=== PATIENT | female | born 1990 | race Caucasian/White ===

== ENCOUNTER → 2016-12-11 | Outpatient (CLI) | payer BC, OTHER ==
[2016-12-11 09:38] LABS: HEMOGLOBIN 13.8 gm/dl (12.3-15.3); RED BLOOD COUNT 4.5 M/UL (4.00-5.10); WHITE BLOOD COUNT 7.1 K/UL (4.5-11.0)
== END ==
LOC: LAB 08:24
PROVIDERS: Physician Assistant
DX: D72.829 Elevated white blood cell count, unspecified (principal)
CPT/HCPCS: 36415; 85025

== ENCOUNTER 2021-08-04 08:23 | Emergency (ER) | payer OTHER ==
[~2021-08-04 08:23] MED LIST: COLACE 100MG C100 MG PO; FLOMAX0.4 MG PO; NORCO 5-325 TA1 EACH PO; PRENATAL 19 TA1 EAC1 PO; VENTOLIN HFA 66.7 GM INH; ZOFRAN ODT4 MG PO
[2021-08-04 11:01] LABS: HEMOGLOBIN 13.8 gm/dl (12.3-15.3); RED BLOOD COUNT 4.59 M/UL (4.00-5.10); WHITE BLOOD COUNT 6.7 K/UL (4.5-11.0)
[2021-08-04 11:19] LABS: BUN/CREATININE RATIO 19 (0-10)
[2021-08-04] MEDS ORDERED: CARAFATE1 GM PO (12:13)
[2021-08-04] MEDS ORDERED: PHENERGAN 25 MG25 M1 PO (12:13)
[2021-08-04] MEDS ORDERED: DOXYLAMINE-PYR1 EACH PO (12:13)
== END 2021-08-04 13:03 | disposition home or self-care (01) ==
LOC: ER1 08:23
PROVIDERS: Physician Assistant
DX: O99.611 Diseases of the digestive system complicating pregnancy, first trimester (principal); K21.9 Gastro-esophageal reflux disease without esophagitis; O99.511 Diseases of the respiratory system complicating pregnancy, first trimester; J45.909 Unspecified asthma, uncomplicated; O21.9 Vomiting of pregnancy, unspecified; Z88.0 Allergy status to penicillin; Z88.2 Allergy status to sulfonamides
CPT/HCPCS: 80053; 81001; 83690; 84702; 85025; 96374; 99284; J2550

== ENCOUNTER 2021-09-09 21:07 | Emergency (ER) | payer OTHER ==
[~2021-09-09 21:07] MED LIST changes: +CARAFATE1 GM PO; +DOXYLAMINE-PYR1 EACH PO; +PHENERGAN 25 MG25 M1 PO
[2021-09-09 22:49] LABS: HEMOGLOBIN 12.7 gm/dl (12.3-15.3); RED BLOOD COUNT 4.16 M/UL (4.00-5.10); WHITE BLOOD COUNT 4.4 K/UL (4.5-11.0)
[2021-09-09 23:24] LABS: BUN/CREATININE RATIO 20 (0-10)
== END 2021-09-10 00:17 | disposition home or self-care (01) ==
LOC: ER1 21:07
PROVIDERS: Nurse Practitioner
DX: O98.511 Other viral diseases complicating pregnancy, first trimester (principal); U07.1 COVID-19; Z88.0 Allergy status to penicillin; Z88.2 Allergy status to sulfonamides; Z3A.12 12 weeks gestation of pregnancy
CPT/HCPCS: 80048; 81001; 82550; 82553; 83874; 84484; 85025; 99284

== ENCOUNTER 2021-12-26 20:57 | Outpatient (CLI) | payer OTHER | END 2021-12-27 00:04 | disposition home or self-care (01) | LOC: GENOP 20:57 | DX: O99.891 Other specified diseases and conditions complicating pregnancy (principal); N89.8 Other specified noninflammatory disorders of vagina; Z3A.27 27 weeks gestation of pregnancy | CPT/HCPCS: 81001; 83518; 87210; G0463 ==

== ENCOUNTER 2022-02-18 21:10 | Outpatient (CLI) | payer OTHER | END 2022-02-18 23:09 | disposition home or self-care (01) | LOC: GENOP 21:10 | DX: O62.9 Abnormality of forces of labor, unspecified (principal); Z3A.34 34 weeks gestation of pregnancy | CPT/HCPCS: 81001; 82731; G0463; J0702 ==

== ENCOUNTER 2022-02-19 20:04 | Outpatient (CLI) | payer OTHER | END 2022-02-19 21:29 | disposition home or self-care (01) | LOC: GENOP 20:04 | DX: Z29.8 Encounter for other specified prophylactic measures (principal) | CPT/HCPCS: 96372; J0702 ==

== ENCOUNTER → 2022-03-19 | Outpatient (CLI) | payer OTHER ==
[~2022-03-19] MED LIST changes: +BUTALB-ACETAMI1 EAC1 PO; +HYDROCODON-ACE1 EAC6 PO; +IBUPROFEN600 MG PO
[2022-03-19 14:36] LABS: HEMOGLOBIN 12.6 gm/dl (12.3-15.3); RED BLOOD COUNT 4.45 M/UL (4.00-5.10); WHITE BLOOD COUNT 10.5 K/UL (4.5-11.0)
== END ==
LOC: GENOP 13:23
PROVIDERS: Obstetrics & Gynecology
DX: Z01.812 Encounter for preprocedural laboratory examination (principal)
CPT/HCPCS: 36415; 81001; 85025

== ENCOUNTER 2022-03-20 05:29 | Inpatient (IN) | payer OTHER ==
[~2022-03-20] VITALS: Ht 162.6 cm; Wt 79.4 kg
[~2022-03-20 05:29] MED LIST changes: -BUTALB-ACETAMI1 EAC1 PO; -HYDROCODON-ACE1 EAC6 PO; -IBUPROFEN600 MG PO
[2022-03-20] MEDS ORDERED: IBUPROFEN600 MG PO (09:22)
[2022-03-20] MEDS ORDERED: HYDROCODON-ACE1 EAC6 PO (09:22)
[2022-03-20] MEDS ORDERED: COLACE 100MG C100 MG PO (09:22)
[2022-03-21 03:06] LABS: HEMOGLOBIN 10.8 gm/dl (12.3-15.3)
[2022-03-22] MEDS ORDERED: BUTALB-ACETAMI1 EAC1 PO (13:47)
== END 2022-03-22 15:34 | disposition home or self-care (01) | DRG 788 ==
LOC: OB 05:29
PROVIDERS: ADMIT Obstetrics & Gynecology
PROC: 3E0234Z Introduction of Serum, Toxoid and Vaccine into Muscle, Percutaneous Approach (ICD-10-PCS; 2022-03-20)
PROC: 10D00Z1 Extraction of Products of Conception, Low, Open Approach (ICD-10-PCS; principal; 2022-03-20 07:30)
DX: O99.892 Other specified diseases and conditions complicating childbirth (principal); N73.6 Female pelvic peritoneal adhesions (postinfective); O99.52 Diseases of the respiratory system complicating childbirth; J45.909 Unspecified asthma, uncomplicated; Z3A.39 39 weeks gestation of pregnancy; Z37.0 Single live birth; Z98.890 Other specified postprocedural states; Z88.2 Allergy status to sulfonamides; Z88.0 Allergy status to penicillin; Z86.73 Personal history of transient ischemic attack (TIA), and cerebral infarction without residual deficits; Z83.3 Family history of diabetes mellitus; Z82.49 Family history of ischemic heart disease and other diseases of the circulatory system; Z82.0 Family history of epilepsy and other diseases of the nervous system; Z23 Encounter for immunization
CPT/HCPCS: 36600; 82800; 85014; 85018; 90715; C9113; J1580; J1885; J7030

== ENCOUNTER 2022-03-24 06:21 | Emergency (ER) | payer OTHER ==
[~2022-03-24 06:21] MED LIST changes: +BUTALB-ACETAMI1 EAC1 PO; +HYDROCODON-ACE1 EAC6 PO; +IBUPROFEN600 MG PO
[2022-03-24 08:34] LABS: HEMOGLOBIN 12.3 gm/dl (12.3-15.3); RED BLOOD COUNT 4.28 M/UL (4.00-5.10); WHITE BLOOD COUNT 7.8 K/UL (4.5-11.0)
[2022-03-24 09:33] LABS: BUN/CREATININE RATIO 23 (0-10)
[2022-03-24] MEDS ORDERED: MYCOSTATIN CREA15 GM TOP (12:34)
== END 2022-03-24 13:05 | disposition home or self-care (01) ==
LOC: ER1 06:21
PROVIDERS: Physician Assistant
DX: O89.4 Spinal and epidural anesthesia-induced headache during the puerperium (principal); J45.909 Unspecified asthma, uncomplicated; Z87.442 Personal history of urinary calculi; Z88.2 Allergy status to sulfonamides; Z88.5 Allergy status to narcotic agent
CPT/HCPCS: 80053; 85025; 85610; 96360; 99284